=== PATIENT | female | born 1995 | race Caucasian/White ===

== ENCOUNTER 2017-02-10 22:06 | Emergency (ER) | payer MEDICAID ==
[2017-02-10 22:07] VITALS: BMI 27.6
[2017-02-10 22:12] VITALS: O2SAT 100
[2017-02-10] MEDS ORDERED: Lactated Ringer's 1,000 ML IVB STA (22:41)
[2017-02-10 23:19] LABS: BASO % 0.4 % (0.0-2.0); EOS # 0.1 K/uL (0.0-0.7); EOS % 1.1 % (0.0-4.0); HEMATOCRIT 44.2 % (34.0-47.0); LYMPH # 1.5 K/uL (1.0-4.3); LYMPH % 18.4 % (20.0-40.0); MEAN CELL VOLUME 88.3 fL (81.0-99.0); MEAN CORPUSCULAR HEMOGLOBIN 29.6 pg (27.0-31.0); MEAN CORPUSCULAR HGB CONC 33.6 g/dL (33.0-37.0); MEAN PLATELET VOLUME 9.8 fL (7.2-11.7); MONO # 0.3 K/uL (0.0-0.8); MONO % 3.5 % (0.0-10.0); WHITE BLOOD COUNT 8.1 K/uL (4.8-10.8)
[2017-02-10 23:23] LABS: ALB/GLOB RATIO 1.4 (1.0-2.1); ALKALINE PHOSPHATASE 36 U/L (38-126); ALT/SGPT 36 U/L (9-52); AST/SGOT 23 U/L (14-36); BILIRUBIN,TOTAL 0.8 mg/dL (0.2-1.3); BLOOD UREA NITROGEN 12 mg/dL (7-17); CALCIUM 8.9 mg/dl (8.6-10.4); CARBON DIOXIDE 27 mmol/L (22-30); CHLORIDE 102 mmol/L (98-107); GFR AFRICAN-AMERICAN > 60; GLUCOSE,RANDOM 86 mg/dL (65-105); POTASSIUM 4.3 mmol/L (3.6-5.2); SODIUM 142 mmol/L (132-148); TOTAL PROTEIN 7.9 g/dL (6.3-8.3)
--- NOTE | 2017-02-10 23:54 | C.PDOC ---
History Of Present Illness Pt woke up from sleep with abdominal pain. She went to the bathroom and while having diarrhea, she passed out. Time Seen by Provider: 02/10/17 22:23 Chief Complaint (Nursing): Syncope History Per: Patient Onset/Duration Of Symptoms: Hrs (1) Current Symptoms Are (Timing): Better Number Of Syncopal Episodes: 1 Associated Symptoms Preceding Syncopal Episode: Other (abdominal pain) Possible Causative Factor(s): Other (Diarrhea) Fall Associated With With Symptoms: No Injury As Result Of Fall Severity: Moderate Additional History Per: Prior Records - Symptoms Of CVA Recent Head Trauma: No Past Medical History Reviewed: Historical Data, Nursing Documentation, Vital Signs Vital Signs: Last Vital Signs Temp 97.9 F 02/10/17 22:11 Pulse 65 02/10/17 22:11 Resp 18 02/10/17 22:11 BP 100/70 02/10/17 22:11 Pulse Ox 100 02/10/17 23:55 - Medical History PMH: No Chronic Diseases Surgical History: Appendectomy (6 yrs old), Tonsillectomy - [facility] Procedures MANUAL ASSIST DELIV NEC (03/15/14) REPAIR OB LACERATION NEC (03/15/14) Family History: States: Unknown Family Hx - Social History Hx Tobacco Use: No Hx Alcohol Use: No Hx Substance Use: No - Immunization History Hx Tetanus Toxoid Vaccination: No Hx Influenza Vaccination: No Hx Pneumococcal Vaccination: No Review Of Systems Except As Marked, All Systems Reviewed And Found Negative. Constitutional: Positive for: Malaise. Negative for: Fever Cardiovascular: Negative for: Chest Pain Respiratory: Negative for: Shortness of Breath, Hemoptysis Gastrointestinal: Positive for: Nausea, Abdominal Pain, Diarrhea. Negative for : Vomiting, Melena, Hematochezia, Hematemesis Musculoskeletal: Negative for: Neck Pain, Back Pain Skin: Negative for: Rash Neurological: Negative for: Weakness, Numbness, Seizures Physical Exam - Physical Exam Appears: Non-toxic, No Acute Distress Skin: Normal Color, Warm, Dry, No Rash Head: Atraumatic, Normacephalic Eye(s): bilateral: PERRL, EOMI Neck: Normal ROM, Supple Cardiovascular: Rhythm Regular Respiratory: Normal Breath Sounds, No Accessory Muscle Use Gastrointestinal/Abdominal: Soft, No Tenderness, No Distention Back: No CVA Tenderness Extremity: Normal ROM, No Pedal Edema, No Calf Tenderness Neurological/Psych: Oriented x3, Normal Speech, Normal Cognition, Normal Motor, Normal Sensation ED Course And Treatment - Laboratory Results Result Diagrams: 02/10/17 23:08 02/10/17 23:08 Lab Interpretation: No Acute Changes Urine POC: Negative ECG: Interpreted By Me, Viewed By Me ECG Rhythm: Sinus Rhythm, Nonspecific Changes ECG Interpretation: No Acute Changes Rate From EC O2 Sat by Pulse Oximetry: 100 Pulse Ox Interpretation: Normal Progress - Interventions Interventions:: Observation, Intravenous fluid - Data Reviewed Data Reviewed: Lab, EKG, Old records - Patient Status Patient status: Mostly improved - Continuity of Care Discussed patient case with:: Patient, Family-HIPPA compliant, ED Nurse - Patient Plan Patient Plan: Discharge, F/U with PCP Disposition Counseled Patient/Family Regarding: Studies Performed, Diagnosis, Need For Followup, Rx Given - Disposition Referrals: Shaik Weston MD [Staff Provider] - Disposition: HOME/ ROUTINE Disposition Time: 00:04 Condition: IMPROVED Additional Instructions: Drink plenty of fluids. Follow up with your doctor within 1-2 days. Return to the ER if you develop fever, vomiting, bloody stools, worsening of symptoms or if you have any other concerns. Prescriptions: Bismuth Subsalicylate [Pepto Bismol] 2 tab PO Q1 PRN #16 ctb PRN Reason: Diarrhea Instructions: Acute Diarrhea (ED), Syncope (ED) Forms: [facility] (Djiboutian) - Clinical Impression Clinical Impression: Episode of syncope, Diarrhea
[2017-02-11 00:12] VITALS: BP 100/73; PULSE 67; RESP 16; TEMP 98
--- NOTE | 2017-02-11 21:43 | CARD ---
APPROVED REPORT EKG Measurement Heart [id number] <Conclusion> Normal sinus rhythm Rightward axis Borderline ECG
== END 2017-02-11 00:12 | disposition home or self-care (01) ==
LOC: C.ER 22:06
DX: R19.7 Diarrhea, unspecified (principal); R55 Syncope and collapse
CPT/HCPCS: 80053; 83690; 85025; 93005; 99285; J7120

== ENCOUNTER 2017-04-23 11:58 | Emergency (ER) | payer MEDICAID ==
[2017-04-23 11:58] VITALS: BMI 27.6
[2017-04-23 12:11] VITALS: TEMP 98.6
--- NOTE | 2017-04-23 13:03 | C.PDOC ---
History Of Present Illness Radha Lopez is a 22 year old female, with a past history of broken tooth that was never repaired, who presents to the emergency department complaining of right upper tooth pain onset for x2 days. Patient took 1 tab of Advil with no relief. She denies any fever, or chills. No further medical complaints. PMD: None provided. Time Seen by Provider: 04/23/17 12:34 Chief Complaint (Nursing): Dental Pain History Per: Patient History/Exam Limitations: no limitations Onset/Duration Of Symptoms: Days (x2) Current Symptoms Are (Timing): Still Present Quality: Positive for: "Pain" Past Medical History Reviewed: Historical Data, Nursing Documentation, Vital Signs Vital Signs: Last Vital Signs Temp 98.6 F 04/23/17 12:10 Pulse 70 04/23/17 14:10 Resp 16 04/23/17 14:10 BP 132/85 04/23/17 14:10 Pulse Ox 98 04/23/17 14:10 Surgical History: Appendectomy (6 yrs old), Tonsillectomy - [facility] Procedures MANUAL ASSIST DELIV NEC (03/15/14) REPAIR OB LACERATION NEC (03/15/14) Family History: States: Unknown Family Hx - Social History Hx Tobacco Use: No Hx Alcohol Use: No Hx Substance Use: No - Immunization History Hx Tetanus Toxoid Vaccination: No Hx Influenza Vaccination: No Hx Pneumococcal Vaccination: No Review Of Systems Constitutional: Negative for: Fever, Chills ENT: Positive for: Mouth Pain (right upper toothache ) Physical Exam - Physical Exam Appears: No Acute Distress Skin: Normal Color, Warm, Dry Head: Atraumatic, Normacephalic, No Swelling Eye(s): bilateral: Normal Inspection, PERRL, EOMI Ear(s): Bilateral: Normal Nose: Normal Teeth: Caries (broken carious tender tooth), Tender To Palpation Gingiva: Swelling (mild swelling but no fluctuance to inner surface of gums in right upper mouth) Throat: Normal Neck: Normal ROM Extremity: Normal ROM, No Deformity, No Swelling Neurological/Psych: Oriented x3 ED Course And Treatment O2 Sat by Pulse Oximetry: 97 (RA) Pulse Ox Interpretation: Normal Medical Decision Making Medical Decision Making: Initial Impression: Dental pain Initial Plan: --Pen-vee K 500 mg PO --POC urine --reevaluation 154 pm pt given naproxen and tylenol, dc with amox and follow up dental nohemi. Pt given list of dental facilities. Disposition Counseled Patient/Family Regarding: Diagnosis, Need For Followup, Rx Given - Disposition Disposition: HOME/ ROUTINE Disposition Time: 13:56 Condition: STABLE Additional Instructions: Take medications as prescribed. FOllow up with dentist as soon as possible. See lists of dentists given to you. Prescriptions: Acetaminophen [Tylenol 325mg tab] 650 mg PO Q6 #30 tab Amoxicillin [Amoxil 500 mg Cap] 500 mg PO TID #21 cap Ibuprofen [Motrin] 600 mg PO TID #30 tab Instructions: Dental Caries (ED) Forms: [facility] (Maori), General Discharge Instructions - Clinical Impression Clinical Impression: Dental caries - Scribe Statement Herrera Mayer All medical record entries made by the Scribe were at my direction and personally dictated by me. I have reviewed the chart and agree that the record accurately reflects my personal performance of the history, physical exam, medical decision making, and the department course for this patient. I have also personally directed, reviewed, and agree with the discharge instructions and disposition.
[2017-04-23] MEDS ORDERED: Naproxen 550 mg Tab PO STA (13:32)
[2017-04-23] MEDS ORDERED: Naproxen 550 mg Tab PO ONE (13:36)
[2017-04-23 14:11] VITALS: BP 132/85; PULSE 70; RESP 16
[2017-04-25 09:40] VITALS: O2SAT 97
== END 2017-04-23 14:10 | disposition home or self-care (01) ==
LOC: C.ER 11:58
DX: K02.9 Dental caries, unspecified (principal)